=== PATIENT | female | born 1985 | race Caucasian/White ===

== ENCOUNTER 2016-09-06 19:37 | Emergency (ER) | payer OTHER ==
[2016-09-06] MEDS ORDERED: ONDANSETRON 4 MG/2 ML VIAL IVP STA (20:38)
[2016-09-06] MEDS ORDERED: HYDROmorphone 1 MG/ML 1 ML SYRINGE IVP STA (20:38)
[2016-09-06] MEDS ORDERED: SODIUM CHLORIDE 0.9% 1,000 ML IV ONE (20:38)
--- NOTE | 2016-09-06 20:41 | ED ---
Abdominal Pain HPI - General Chief Complaint: Abdominal Pain Stated Complaint: Rt side pain Time Seen by Provider: 09/06/16 20:31 Source: patient, RN notes reviewed Mode of arrival: ambulatory Limitations: no limitations - History of Present Illness Initial Comments: Patient is a 30-year-old female presents emergency room for evaluation of abdominal pain. Patient states the pain began about 3 days ago. Patient states she notices the pain after she eats anything evening. Patient states one hour after she eats she has excruciating right upper quadrant pain. Patient states pains been getting worse today. Patient states she has been very nauseous and vomited once today. Patient states maki episode of loose yellow malodorous stools yesterday. Patient denies history of abdominal surgeries. Patient denies fevers or chills. Patient's chest pain or shortness of breath. Patient denies headache or dizziness. Patient denies new foods or recent travel outside the country. - Related Data Previous Rx's Medication Instructions Recorded Famotidine [Pepcid] 20 mg PO DAILY PRN #12 tablet 09/07/16 Allergies Allergy/AdvReac Type Severity Reaction Status Date / Time No Known Allergies Allergy Verified 09/06/16 20:12 Review of Systems ROS Statement: Those systems with pertinent positive or pertinent negative responses have been documented in the HPI. ROS Other: All systems not noted in ROS Statement are negative. Past Medical History Past Medical History: No Reported History History of Any Multi-Drug Resistant Organisms: None Reported Past Surgical History: No Surgical Hx Reported Past Psychological History: Anxiety, Depression Smoking Status: Never smoker Past Alcohol Use History: None Reported Past Drug Use History: Marijuana General Exam - General Exam Comments Initial Comments: sitting in exam room, no acute distress. Limitations: no limitations General appearance: alert, in no apparent distress Head exam: Present: atraumatic, normocephalic, normal inspection Eye exam: Present: normal appearance ENT exam: Present: normal exam Neck exam: Present: normal inspection Respiratory exam: Present: normal lung sounds bilaterally. Absent: respiratory distress Cardiovascular Exam: Present: regular rate, normal rhythm, normal heart sounds GI/Abdominal exam: Present: soft, tenderness (RUQ), normal bowel sounds. Absent : distended, guarding, rebound, rigid Extremities exam: Present: normal inspection Back exam: Present: normal inspection Neurological exam: Present: alert, oriented X3, CN II-XII intact, normal gait Psychiatric exam: Present: normal affect, normal mood Skin exam: Present: warm, dry, intact, normal color. Absent: rash Course Vital Signs 09/06/16 09/07/16 09/07/16 20:10 00:12 01:56 Temperature 98.0 F 98.2 F Pulse Rate 70 87 82 Respiratory 18 20 18 Rate Blood Pressure 114/71 120/77 119/79 O2 Sat by Pulse 99 98 98 Oximetry Medical Decision Making - Medical Decision Making patient states 30-year-old female presents emergency room for evaluation of abdominal pain. CT abdomen/pelvis showed no acute findings. Lab work shows no acute findings. Ultrasound showed no signs of cholecystitis or cholelithiasis. Discussed with patient the possibility of maybe needing a HIDA scan for further evaluation of gallbladder. [facility] and advised to follow-up with primary care provider. Patient states she states she understands everything that was discussed with her. Return parameters discussed. Case discussed with Dr. Mott. - Lab Data Result diagrams: 09/06/16 20:45 09/06/16 20:45 Lab Results 09/06/16 09/06/16 09/06/16 Range/Units 20:45 20:45 20:45 WBC (3.8-10.6) k/uL RBC (3.80-5.40) m/uL Hgb (11.4-16.0) gm/dL Hct (34.0-46.0) % MCV (80.0-100.0) fL MCH (25.0-35.0) pg MCHC (31.0-37.0) g/dL RDW (11.5-15.5) % Plt Count (150-450) k/uL Neutrophils % % Lymphocytes % % Monocytes % % Eosinophils % % Basophils % % Neutrophils # (1.3-7.7) k/uL Lymphocytes # (1.0-4.8) k/uL Monocytes # (0-1.0) k/uL Eosinophils # (0-0.7) k/uL Basophils # (0-0.2) k/uL Sodium 140 (137-145) mmol/L Potassium 4.0 (3.5-5.1) mmol/L Chloride 106 (98-107) mmol/L Carbon Dioxide 22 (22-30) mmol/L Anion Gap 12 mmol/L BUN 16 (7-17) mg/dL Creatinine 0.70 (0.52-1.04) mg/dL Est GFR (MDRD) Af Amer >60 (>60 ml/min/1.73 sqM) Est GFR (MDRD) Non-Af >60 (>60 ml/min/1.73 sqM) Glucose 100 H (74-99) mg/dL Calcium 9.1 (8.4-10.2) mg/dL Total Bilirubin 0.2 (0.2-1.3) mg/dL AST 22 (14-36) U/L ALT 56 H (9-52) U/L Alkaline Phosphatase 73 (38-126) U/L Total Protein 7.4 (6.3-8.2) g/dL Albumin 4.3 (3.5-5.0) g/dL Amylase <30 L (30-110) U/L Lipase 52 (23-300) U/L Urine Color Light Yellow Urine Appearance Clear (Clear) Urine pH 6.0 (5.0-8.0) Ur Specific Council 1.012 (1.001-1.035) Urine Protein Negative (Negative) Urine Glucose (UA) Negative (Negative) Urine Ketones Negative (Negative) Urine Blood Negative (Negative) Urine Nitrite Negative (Negative) Urine Bilirubin Negative (Negative) Urine Urobilinogen <2.0 (<2.0) mg/dL Ur Leukocyte Esterase Negative (Negative) Urine HCG, Qual Not Detected (Not Detectd) 09/06/16 Range/Units 20:45 WBC 7.8 (3.8-10.6) k/uL RBC 4.28 (3.80-5.40) m/uL Hgb 13.1 (11.4-16.0) gm/dL Hct 38.0 (34.0-46.0) % MCV 88.6 (80.0-100.0) fL MCH 30.6 (25.0-35.0) pg MCHC 34.6 (31.0-37.0) g/dL RDW 13.3 (11.5-15.5) % Plt Count 256 (150-450) k/uL Neutrophils % 53 % Lymphocytes % 37 % Monocytes % 4 % Eosinophils % 3 % Basophils % 1 % Neutrophils # 4.1 (1.3-7.7) k/uL Lymphocytes # 2.9 (1.0-4.8) k/uL Monocytes # 0.3 (0-1.0) k/uL Eosinophils # 0.2 (0-0.7) k/uL Basophils # 0.1 (0-0.2) k/uL Sodium (137-145) mmol/L Potassium (3.5-5.1) mmol/L Chloride (98-107) mmol/L Carbon Dioxide (22-30) mmol/L Anion Gap mmol/L BUN (7-17) mg/dL Creatinine (0.52-1.04) mg/dL Est GFR (MDRD) Af Amer (>60 ml/min/1.73 sqM) Est GFR (MDRD) Non-Af (>60 ml/min/1.73 sqM) Glucose (74-99) mg/dL Calcium (8.4-10.2) mg/dL Total Bilirubin (0.2-1.3) mg/dL AST (14-36) U/L ALT (9-52) U/L Alkaline Phosphatase (38-126) U/L Total Protein (6.3-8.2) g/dL Albumin (3.5-5.0) g/dL Amylase (30-110) U/L Lipase (23-300) U/L Urine Color Urine Appearance (Clear) Urine pH (5.0-8.0) Ur Specific Council (1.001-1.035) Urine Protein (Negative) Urine Glucose (UA) (Negative) Urine Ketones (Negative) Urine Blood (Negative) Urine Nitrite (Negative) Urine Bilirubin (Negative) Urine Urobilinogen (<2.0) mg/dL Ur Leukocyte Esterase (Negative) Urine HCG, Qual (Not Detectd) - Radiology Data Radiology results: report reviewed, image reviewed Disposition Clinical Impression: Abdominal pain Disposition: HOME SELF-CARE Condition: Good Instructions: Gastritis (ED), Abdominal Pain (ED) Additional Instructions: Take Pepcid as directed. Please follow up with primary care provider for further evaluation. Refrain from spicy or fatty foods. If any new symptom arises or symptoms worsen, return to ER as soon as possible. Prescriptions: Famotidine [Pepcid] 20 mg PO DAILY PRN #12 tablet PRN Reason: Pain Referrals: None,Stated [Primary Care Provider] - 1-2 days Time of Disposition: 01:39
[2016-09-06 21:00] LABS: Basophils # (A) 0.1 k/uL (0-0.2); Basophils % (A) 1 %; CH 31.6; CHCM 35.8; Eosinophils # (A) 0.2 k/uL (0-0.7); Eosinophils % (A) 3 %; HDW 2.63; HGB 13.1 gm/dL (11.4-16.0); Luc # (Auto) 0.12; Luc % (Auto) 2; Lymphocytes # (A) 2.9 k/uL (1.0-4.8); Lymphocytes % (A) 37 %; MCH 30.6 pg (25.0-35.0); MCHC 34.6 g/dL (31.0-37.0); MCV 88.6 fL (80.0-100.0); Mean Platelet Volume 8.7; Monocytes # (A) 0.3 k/uL (0-1.0); Monocytes % (A) 4 %; Neutrophils # (A) 4.1 k/uL (1.3-7.7); Neutrophils % (A) 53 %; RBC 4.28 m/uL (3.80-5.40); RDW 13.3 % (11.5-15.5); WBC 7.8 k/uL (3.8-10.6); WBC (Perox) 7.86
[2016-09-06 21:03] LABS: Appearance,Urine Clear (Clear); Bilirubin,Urine Negative (Negative); Glucose,Urine (UA) Negative (Negative); Ketones,Urine Negative (Negative); Leukocyte Esterase,Urine Negative (Negative); Nitrite,Urine Negative (Negative); Protein,Urine Negative (Negative); Specific Gravity,Urine 1.012 (1.001-1.035); UA Billing (MACRO vs. MICRO) CHEM; Urobilinogen,Urine <2.0 mg/dL (<2.0)
[2016-09-06 21:17] LABS: ALT 56 U/L (9-52); AST 22 U/L (14-36); Alkaline Phosphatase 73 U/L (38-126); Amylase <30 U/L (30-110); Anion Gap 12 mmol/L; Blood Urea Nitrogen 16 mg/dL (7-17); Calcium 9.1 mg/dL (8.4-10.2); Carbon Dioxide 22 mmol/L (22-30); Chloride 106 mmol/L (98-107); Glucose 100 mg/dL (74-99); Non-African American GFR(MDRD) >60 (>60 ml/min/1.73 sqM); Sodium 140 mmol/L (137-145); Total Bilirubin 0.2 mg/dL (0.2-1.3); Total Protein 7.4 g/dL (6.3-8.2)
[2016-09-06] MEDS ORDERED: SODIUM CHLORIDE 0.9% 500 ML IV ONE (23:49)
[2016-09-06] MEDS ORDERED: RX INFO: IV CONTRAST WAS GIVEN 1 EACH MISC MISCELLANE PRN (23:49)
[2016-09-07] MEDS ORDERED: diphenhydrAMINE 50 MG/ML 1 ML VIAL IVP STA (00:21)
[2016-09-07] MEDS ORDERED: FAMOTIDINE 20 MG/2 ML VIAL IV STA (00:21)
[2016-09-07] MEDS ORDERED: methylPREDNISolone SOD SUCCI 125 MG/2 ML VIAL IV STA (00:21)
--- NOTE | 2016-09-07 00:48 | CT ---
EXAM: CT Abdomen and Pelvis With Intravenous Contrast. CLINICAL HISTORY: Reason: Pain TECHNIQUE: Axial computed tomography images of the abdomen and pelvis with intravenous contrast. CTDI is 16.2 mGy and DLP is 480 mGy-cm. This CT exam was performed using one or more of the following dose reduction techniques: automated exposure control, adjustment of the mA and/or kV according to patient size, and/or use of iterative reconstruction technique. COMPARISON: No relevant prior studies available. FINDINGS: Lower thorax: No acute findings. ABDOMEN: Liver: Unremarkable. No mass. Gallbladder and bile ducts: Unremarkable. No calcified stones. No ductal dilation. Pancreas: Unremarkable. No ductal dilation. No mass. Spleen: Unremarkable. No splenomegaly. Adrenals: Unremarkable. No mass. Kidneys and ureters: Unremarkable. No hydronephrosis. No solid mass. PELVIS: Bladder: Unremarkable. No mass. Reproductive: Unremarkable as visualized. Appendix: No findings to suggest acute appendicitis. ABDOMEN + PELVIS: Stomach and bowel: Unremarkable. No obstruction. No mucosal thickening. Peritoneum: Unremarkable. No significant fluid collection. No free air. Lymph nodes: Unremarkable. No enlarged lymph nodes. Vasculature: Unremarkable. No aortic aneurysm. Bones: No acute fracture. IMPRESSION: Normal abdomen and pelvis.
--- NOTE | 2016-09-07 01:23 | US ---
PROCEDURE: US ABDOMEN HISTORY: 30-year-old female with abdominal pain. COMPARISON: CT abdomen and pelvis 09/06/2016 at 2355 TECHNIQUE: Real-time sonographic evaluation of the abdomen was performed. FINDINGS: The liver demonstrates increased echogenicity. No gallbladder wall thickening, intraluminal shadowing echogenic foci, or pericholecystic free fluid. Positive sonographic Huerta sign per boat ride operator report. No intra-or extrahepatic biliary ductal dilation. Visualized portions of the pancreas are unremarkable. The right kidney measures 10.3 cm in length. No evidence of right hydronephrosis. No right upper quadrant free fluid. IMPRESSION: 1. Increased hepatic echogenicity, can be seen in hepatic steatosis or other hepatocellular disease. 2. No evidence of cholelithiasis, gallbladder wall thickening, or pericholecystic free fluid. Positive sonographic Huerta sign per boat ride operator report. 3. No intra-or extrahepatic biliary ductal dilation. 4. Other findings as detailed above.
[2016-09-07] MEDS ORDERED: MAG HYDROX/AL HYDROX/SIMETH 30 ML, HYOSCYAMINE ELIXIR 10 ML, CIMETIDINE HCL 300 MG, LID... PO STA ×4 (01:39)
[2016-09-07 01:58] VITALS: BP 119/79; PULSE 82; RESP 18; TEMP 98.2
== END 2016-09-07 01:58 | disposition home or self-care (01) ==
LOC: EC 19:37
DX: R10.11 Right upper quadrant pain (principal); R11.2 Nausea with vomiting, unspecified; R19.7 Diarrhea, unspecified
CPT/HCPCS: 96374 ×2; 96375 ×5; 96361 ×3; 99284 ×2; 36415; 80053; 82150; 83690; 85025; 81003; 81025; 76705; 74177; J1200; J2930; J2405; J1170; Q9967